=== PATIENT | male | born 1985 | race Caucasian/White ===

== ENCOUNTER 2019-01-17 08:56 | Day surgery (SDC) | payer OTHER ==
[~2019-01-17] VITALS: Ht 185.4 cm; Wt 100.0 kg
[~2019-01-17 08:56] MED LIST: ACETAMINOPHEN 500 MG TABLET PO ONE; BUPIVACAINE-EPI 0.25%-1:200000 MPF 30 ML VIAL. INJ ONE; HYDROmorphone 2 MG/ML VIAL IV PRN; IOHEXOL 300 MG/ML 50 ML VIAL. ONE; IV RINGERS,LACTATED 1000ML 1,000 ML IV SCH; LIDOCAINE 1% PF 2 ML VIAL. ID PRN; MORPHINE SULFATE 2 MG/ML VIAL. IV PRN; ONDANSETRON PF 4 MG/2 ML VIAL. IV PRN; PROCHLORPERAZINE 10 MG/2 ML VIAL. IV PRN; SURGICEL HEMOSTAT 4X8 EACH. ONE; fentaNYL PF VIAL 100 MCG/2 ML VIAL IV PRN
[2019-01-17] MEDS ORDERED: ONDANSETRON PF 4 MG/2 ML VIAL. ONE (09:31)
[2019-01-17] MEDS ORDERED: PROPOFOL 0 ML IV ONE (09:31)
[2019-01-17] MEDS ORDERED: DEXAMETHASONE SOD PHOS 4 MG/ML VIAL ONE (09:31)
[2019-01-17] MEDS ORDERED: fentaNYL PF VIAL 100 MCG/2 ML VIAL ONE ×3 (09:32→11:57)
[2019-01-17] MEDS ORDERED: ROCURONIUM 50 MG/5 ML VIAL. ONE (09:32)
[2019-01-17] MEDS ORDERED: PROPOFOL 20 ML IV ONE (10:12)
[2019-01-17] MEDS ORDERED: GLYCOPYRROLATE 1 MG/5 ML VIAL. ONE (10:28)
[2019-01-17] MEDS ORDERED: NEOSTIGMINE METHYLSULFATE 5 MG/5 ML SYRINGE. ONE (10:29)
--- NOTE | 2019-01-17 10:39 | PDOC4 ---
Operative Note Operative Note Date: 01/17/2019 Preoperative diagnosis: Biliary dyskinesia Postoperative diagnosis: Same Procedure: Laparoscopic cholecystectomy Specimen: Gallbladder Surgeon: Radames Dictation: Patient is a 33-year-old male is had right upper quadrant abdominal pain postprandial nausea and a HIDA scan shows a abnormally low ejection fra ction. Procedure of laparoscopic cholecystectomy was explained to the patient detail risk benefits were also discussed including bleeding infection injury to intra-abdominal contents possibly necessitating further or open operations alternatives to this procedure also discussed with the patient seemed to understand and gave both verbal and written consent had the procedure performed. Patient was taken to the operating room placed in supine position general anesthesia was initiated once patient was sleep and intubated abdomen was prepped and draped usual sterile fashion using ChloraPrep was noted that he had previously umbilical hernia repair with mesh so access to the abdomen was done through a 5 mill meter port in the left upper quadrant the area was injected with quarter percent Marcaine with epinephrine incision was made with an 11 blade knife and a 5 mill meter port was placed under direct visualization and the abdomen and pneumoperitoneum was achieved once this complete 11 mm port was placed at the umbilicus under direct visualization and a 5 mill meter port was placed in the right mid abdomen and one in the right lateral abdomen the dome of the gallbladder is grasped retracted cephalad the infundibulum of the gallbladder is grasped tract laterally exposing the triangle adherent tissues of the triangle were taken down with blunt dissection exposing the cystic duct and cystic artery both were doubly clipped and transected the gallbladder was taken off the liver with a clot cautery placed in Endo Catch bag and removed from the umbilicus in the right upper quadrant was irrigated suctioned dry hemostasis to be appropriate and the pneumoperitoneum was reduced all ports removed fascial defect at the umbilicus closed [id number] 0 Vicryl suture and the skin was approximated all port sites with 40 septic and a Monocryl Mastisol Steri-Strips and island dressings were applied. Patient was awakened and extubated operating room taken to recovery in stable condition all sponge instrument needle counts listed as correct estimated blood loss 5 mL. ABHAY RODRIGUEZ MD Jan 17, 2019 10:39
--- NOTE | 2019-01-17 10:41 | DISCH ---
DISCHARGE INSTRUCTIONS Condition on Discharge Condition on Discharge: Stable Activity After Discharge Activity Instructions for Disc: Avoid exertion Other activity instructions: no lifting more than 20 pounds for 2 weeks Diet after Discharge Diet after Discharge: Low Fat Wound Incision Care Other wound/incision instructi: May shower in 24 hours Contacting the after DC Call your doctor for: If your condition worsens Follow-Up Follow up with: Dr. Rodriguez in 2 weeks ABHAY RODRIGUEZ MD Jan 17, 2019 10:41
[2019-01-17] MEDS ORDERED: OXYC1TAB15 PO (11:13)
[2019-01-17] MEDS ORDERED: oxyCODONE/APAP 5/325 1 TAB TABLET PO ONE ×2 (11:15)
[2019-01-17] MEDS: fentaNYL PF VIAL 100 MCG/2 ML VIAL IV PRN ×2 (11:20→11:32)
[2019-01-17 11:45] VITALS: BP 135/84
--- NOTE | 2019-01-21 14:07 | PATHOLOGY ---
[facility] Accession Number: [id number] . 01 Material submitted: . gallbladder - GALLBLADDER AND CONTENTS . 01 Clinical history: . Biliary dyskinesia . 02 Diagnosis: Gallbladder, cholecystectomy: - Chronic cholecystitis. . ([facility]:mm; 01/21/2019) [facility] 01/21/2019 0953 [facility] . 02 Comment: There are no calculi identified within the gallbladder lumen or specimen container. There is no evidence of malignancy. . ([facility]:mml; 01/21/2019) . 02 Electronically signed: . Girish Poe MD, Pathologist NPI- [id number] . 01 Gross description: . Received in formalin labeled "Martin, Zak, gallbladder and contents," is an intact, turgid gallbladder measuring 9.5 x 3.3 x 3.2 cm in greatest dimensions. The serosal surface is smooth and light-dark green to focally hemorrhagic in appearance, displaying scant attached yellow adipose tissue. Opening the specimen reveals a dark green mucosa measuring 0.1 cm in thickness, with an average gallbladder wall thickness of 0.1 cm. No polyps or nodules are identified grossly. Calculi are not present within the specimen or specimen container. Program Evaluation Consultant sections of the infundibulum, body and fundus are submitted in cassette A1. ([facility]; 01/18/2019) XDC/XDC 01/18/2019 0849 Local . 02 Pathologist provided ICD-10: K81.1 . 02 CPT . 970387 Specimen Comment: A courtesy copy of this report has been sent to [phone], [phone] Specimen Comment: [id number] Specimen Comment: Report sent to / DR DAVID Performed at: [address] [place] [address] [address], [place], [place] [id number] MD Jorge Hadley MD Phone: [phone] Performed at: [address] [id number] MD Girish Poe MD Phone: [phone]
== END 2019-01-17 12:00 | disposition home or self-care (01) ==
LOC: SURG 08:56
PROVIDERS: ATTEND Surgery
DX: K82.8 Other specified diseases of gallbladder (principal); K81.1 Chronic cholecystitis; F19.90 Other psychoactive substance use, unspecified, uncomplicated
CPT/HCPCS: 47562; A7015; J0696; J0780; J1100; J2270; J2405; J2704; J2710; J3010; J3490; J7030; Q9967